=== PATIENT | male | born 1935 | race Caucasian/White ===

== ENCOUNTER 2016-07-14 16:25 | Emergency (ER) | payer OTHER ==
[~2016-07-14] VITALS: Ht 180.3 cm; Wt 145.4 kg
[~2016-07-14 16:25] MED LIST: ALEVE220 M2 PO; ALLOPURINOL300 MG PO; AMARYL4 MG PO; ASCORBIC ACID500 M3 PO; ASPIRIN EC325 MG PO; ATORVASTATIN CA40 MG PO; CARDIZEM CD,CA240 MG PO; CHOLESTYRAMINE210 GM PO; Cordarone, Pacerone PO; DOCUSATE SODIU100 MG PO; FISH OIL300 MG PO; FOLIC ACID1 MG PO; GLIMEPIRIDE4 MG PO; GLUCOPHAGE1000 MG PO; LIPITOR10 MG PO; LIPITOR20 MG PO; LISINOPRIL-HCT1 EACH PO; LISINOPRIL40 MG PO; LO-DOSE ASPIRIN81 M2 PO; LOPRESSOR25 MG PO; LOW DOSE ASPIRI81 M1 PO; METFORMIN HCL1000 MG PO; METHOCARBAMOL500 MG PO; METOPROLOL SUCC50 MG PO; METOPROLOL TART25 MG PO; MOTRIN600 MG PO; OXYCODONE HCL5 MG PO; PERCOCET 5/31 TABLET PO; QUESTRAN LIGHT210 GM PO; SELENIUM100 MICROG PO; THERAGRAN1 TABLET PO; TOPROL XL50 MG PO; ZYLOPRIM300 MG PO
[2016-07-14 17:21] LABS: EOSINOPHIL (%) 1.6 % (0-5); EOSINOPHIL COUNT 0.2 K/uL (0-0.3); HEMATOCRIT 35.2 % (38.0-50.0); IMMATURE GRANULOCYTE (%) 0.8 % (0.0-0.7); IMMATURE GRANULOCYTE COUNT 0.1 K/uL; INSTRUMENT ABS NEUTROPHIL CT 8.4 K/uL; LYMPHOCYTE COUNT 1.9 K/uL (1.0-2.8); MCH 30.9 PG (29.0-34.0); MCHC 33.8 G/DL (30.0-36.0); MCV 91.4 FL (86-99); MEAN PLAT.VOLUME 11.2 uM^3 (9.0-12.4); MONOCYTE (%) 8.9 % (3-12); NEUTROPHIL (%) 72.4 % (45-76); NEUTROPHIL COUNT 8.4 K/uL (1.8-6.4); PLATELET COUNT 218 K/uL (156-360); RBC DIS.WIDTH-CV 14.6 % (11.8-14.6); RBC DIS.WIDTH-SD 48.7 % (39-53); RED BLOOD COUNT 3.85 M/uL (4.00-5.50); WHITE BLOOD COUNT 11.6 K/uL (4.1-10.2)
[2016-07-14 17:27] LABS: CHLORIDE 104 mEq/L (99-109)
[2016-07-14 17:28] LABS: POTASSIUM 3.8 mEq/L (3.7-5.4); SODIUM 137 mEq/L (136-147)
[2016-07-14 17:30] LABS: GLUCOSE 184 mg/dL (70-99)
[2016-07-14 17:31] LABS: ANION GAP 13 MEQ/L (2-14)
[2016-07-14 17:32] LABS: TOTAL BILIRUBIN 0.7 mg/dL (0.0-1.0)
[2016-07-14 17:33] LABS: ALKALINE PHOSPHATASE 38 IU/L (3-129); GFR ESTIMATE (CALCULATED) > 59 mL/min/
[2016-07-14 17:35] LABS: UREA NITROGEN (BUN) 20 mg/dL (9-23)
[2016-07-14 17:42] LABS: TROP-I INTERPRETATION NEGATIVE; TROPONIN-I < 0.01 ng/mL (0.0-0.30)
[2016-07-14 19:21] LABS: BILIRUBIN NEGATIVE; BLOOD NEGATIVE; COLOR YELLOW ((YELLOW)); GLUCOSE (STRIP) NEGATIVE; KETONES 5; LEUKOCYTES NEGATIVE; NITRITE NEGATIVE; PROTEIN (STRIP) NEGATIVE; SPECIFIC GRAVITY 1.016 (1.000-1.030); UROBILINOGEN 0.2 MG/DL (0.2-1.0)
[2016-07-14 19:38] LABS: ADD MIUA? NO
[2016-07-14] MEDS ORDERED: KEFLEX500 MG PO (20:26)
[2016-07-14] MEDS ORDERED: MOTRIN600 MG PO (20:26)
[2016-07-14] MEDS ORDERED: BACLOFEN20 MG PO (20:26)
[2016-07-14 21:09] VITALS: BP 127/82
== END 2016-07-14 21:10 | disposition home or self-care (01) ==
LOC: EME → EDBD 16:25 → EME 21:10
PROVIDERS: Emergency Medicine
DX: S92.512A Displaced fracture of proximal phalanx of left lesser toe(s), initial encounter for closed fracture (principal); M54.5 Low back pain; W19.XXXA Unspecified fall, initial encounter; Y92.003 Bedroom of unspecified non-institutional (private) residence as the place of occurrence of the external cause; S91.106A Unspecified open wound of unspecified lesser toe(s) without damage to nail, initial encounter; E11.9 Type 2 diabetes mellitus without complications; I10 Essential (primary) hypertension; Z87.891 Personal history of nicotine dependence; Z79.84 Long term (current) use of oral hypoglycemic drugs; Z79.82 Long term (current) use of aspirin; I50.9 Heart failure, unspecified; M10.9 Gout, unspecified; Z95.2 Presence of prosthetic heart valve; Z96.651 Presence of right artificial knee joint
CPT/HCPCS: 70450; 72100; 72170; 73630; 80053; 81003; 84484; 85025; 93005; 99281; 99285; J1885

== ENCOUNTER 2016-07-30 02:41 | Inpatient (IN) | payer OTHER ==
[~2016-07-30] VITALS: Ht 177.8 cm; Wt 147.0 kg
[~2016-07-30 02:41] MED LIST changes: +BACLOFEN20 MG PO; +KEFLEX500 MG PO
[2016-07-30 03:30] LABS: ADD MIUA? YES; BILIRUBIN NEGATIVE; BLOOD NEGATIVE; COLOR AMBER ((YELLOW)); GLUCOSE (STRIP) NEGATIVE; KETONES NEGATIVE; LEUKOCYTES TRACE; NITRITE NEGATIVE; PROTEIN (STRIP) 30; SPECIFIC GRAVITY 1.018 (1.000-1.030); UROBILINOGEN 0.2 MG/DL (0.2-1.0)
[2016-07-30 03:42] LABS: INTER. NORMALIZED RATIO 1.1; PROTHROMBIN TIME 10.8 (9.2-11.2); PTT 25.8 (25-32)
[2016-07-30 03:43] LABS: EOSINOPHIL (%) 1.4 % (0-5); EOSINOPHIL COUNT 0.2 K/uL (0-0.3); HEMATOCRIT 35.1 % (38.0-50.0); IMMATURE GRANULOCYTE COUNT 0.1 K/uL; INSTRUMENT ABS NEUTROPHIL CT 10.8 K/uL; MCH 30.6 PG (29.0-34.0); MCV 92.6 FL (86-99); MEAN PLAT.VOLUME 11.5 uM^3 (9.0-12.4); MONOCYTE (%) 8.7 % (3-12); MONOCYTE COUNT 1.3 K/uL (0-0.8); NEUTROPHIL (%) 74.7 % (45-76); NEUTROPHIL COUNT 10.8 K/uL (1.8-6.4); PLATELET COUNT 181 K/uL (156-360); RBC DIS.WIDTH-CV 15.2 % (11.8-14.6); RED BLOOD COUNT 3.79 M/uL (4.00-5.50); WHITE BLOOD COUNT 14.4 K/uL (4.1-10.2)
[2016-07-30 03:45] LABS: BACTERIA NONE SEEN /HPF; EPITHELIAL CELLS RARE /HPF; GRANULAR CASTS 0-5 /LPF; HYALINE CASTS 20-30 /LPF; MUCUS TRACE /LPF; UCUL ADDED? NO; WHITE BLOOD CELLS NONE SEEN /HPF (0-5)
[2016-07-30 03:46] LABS: CHLORIDE 103 mEq/L (99-109); POTASSIUM 4.3 mEq/L (3.7-5.4); SODIUM 134 mEq/L (136-147)
[2016-07-30 03:49] LABS: GLUCOSE 142 mg/dL (70-99)
[2016-07-30 03:50] LABS: ANION GAP 17 MEQ/L (2-14); TOTAL BILIRUBIN 0.4 mg/dL (0.0-1.0)
[2016-07-30 03:52] LABS: ALKALINE PHOSPHATASE 44 IU/L (3-129); GFR ESTIMATE (CALCULATED) 28 mL/min/
[2016-07-30 03:53] LABS: UREA NITROGEN (BUN) 70 mg/dL (9-23)
[2016-07-30 03:54] LABS: DIRECT BILIRUBIN 0.2 mg/dL (0.0-0.3)
[2016-07-30 03:56] LABS: LIPASE 64 U/L (1.0-51.0)
[2016-07-30 04:54] LABS: HDL CHOLESTEROL 35 MG/DL (Desirable>=40); LDL CHOLESTEROL 90 mg/dL (Desirable<100); NON-HDL CHOLESTEROL 143 mg/dL (Desirable<160); SAMPLE HEMOLYSIS CHECK 0; SAMPLE ICTERIC CHECK 0; SAMPLE LIPEMIA CHECK 0; TOTAL CHOLESTEROL 178 mg/dL (Desirable<200); TRIGLYCERIDES 264 MG/DL (Normal: <150)
[2016-07-30] MEDS ORDERED: BACLOFEN10 MG PO (07:45)
[2016-07-30 17:50] VITALS: BP 135/73
[2016-07-30 18:05] LABS: EOSINOPHIL (%) 0.7 % (0-5); EOSINOPHIL COUNT 0.1 K/uL (0-0.3); HEMATOCRIT 36.7 % (38.0-50.0); IMMATURE GRANULOCYTE (%) 0.7 % (0.0-0.7); IMMATURE GRANULOCYTE COUNT 0.1 K/uL; INSTRUMENT ABS NEUTROPHIL CT 9.5 K/uL; LYMPHOCYTE COUNT 1.4 K/uL (1.0-2.8); MCH 30.5 PG (29.0-34.0); MCHC 32.7 G/DL (30.0-36.0); MCV 93.1 FL (86-99); MEAN PLAT.VOLUME 11.8 uM^3 (9.0-12.4); MONOCYTE (%) 9.4 % (3-12); MONOCYTE COUNT 1.2 K/uL (0-0.8); NEUTROPHIL (%) 77.5 % (45-76); NEUTROPHIL COUNT 9.5 K/uL (1.8-6.4); PLATELET COUNT 158 K/uL (156-360); RBC DIS.WIDTH-CV 14.9 % (11.8-14.6); RBC DIS.WIDTH-SD 50.3 % (39-53); RED BLOOD COUNT 3.94 M/uL (4.00-5.50); WHITE BLOOD COUNT 12.2 K/uL (4.1-10.2)
[2016-07-30 18:14] LABS: ANION GAP 11 MEQ/L (2-14); CHLORIDE 104 MEQ/L (99-109); POTASSIUM 4.3 MEQ/L (3.7-5.4); SAMPLE HEMOLYSIS CHECK 0; SAMPLE ICTERIC CHECK 0; SAMPLE LIPEMIA CHECK 0; SODIUM 133 MEQ/L (136-147)
[2016-07-30 18:20] LABS: GFR ESTIMATE (CALCULATED) 52 mL/min/; GLUCOSE 222 mg/dL (70-99); UREA NITROGEN (BUN) 49 mg/dL (9-23)
[2016-07-30 19:45] VITALS: BP 161/68
[2016-07-30 20:54] LABS: POINT-OF-CARE METER ID UU14188625
[2016-07-31] VITALS (7 sets, daily range): BP systolic 121–157; BP diastolic 60–91
[2016-07-31 07:43] LABS: EOSINOPHIL (%) 2.3 % (0-5); EOSINOPHIL COUNT 0.3 K/uL (0-0.3); HEMATOCRIT 34.1 % (38.0-50.0); IMMATURE GRANULOCYTE (%) 0.8 % (0.0-0.7); IMMATURE GRANULOCYTE COUNT 0.1 K/uL; INSTRUMENT ABS NEUTROPHIL CT 7.8 K/uL; LYMPHOCYTE COUNT 2.1 K/uL (1.0-2.8); MCH 30.4 PG (29.0-34.0); MCHC 32.8 G/DL (30.0-36.0); MCV 92.7 FL (86-99); MONOCYTE (%) 11.1 % (3-12); MONOCYTE COUNT 1.3 K/uL (0-0.8); NEUTROPHIL (%) 67.6 % (45-76); NEUTROPHIL COUNT 7.8 K/uL (1.8-6.4); PLATELET COUNT 166 K/uL (156-360); RBC DIS.WIDTH-CV 15.1 % (11.8-14.6); RBC DIS.WIDTH-SD 50.6 % (39-53); RED BLOOD COUNT 3.68 M/uL (4.00-5.50); WHITE BLOOD COUNT 11.6 K/uL (4.1-10.2)
[2016-07-31 08:01] LABS: POINT-OF-CARE METER ID UU14174225
[2016-07-31 08:04] LABS: ANION GAP 10 MEQ/L (2-14); CHLORIDE 108 MEQ/L (99-109); GFR ESTIMATE (CALCULATED) > 59 mL/min/; GLUCOSE 184 mg/dL (70-99); POTASSIUM 4.1 MEQ/L (3.7-5.4); SAMPLE HEMOLYSIS CHECK 0; SAMPLE ICTERIC CHECK 0; SAMPLE LIPEMIA CHECK 0; SODIUM 139 MEQ/L (136-147); UREA NITROGEN (BUN) 34 mg/dL (9-23); URIC ACID 7.4 mg/dL (3.1-9.2)
[2016-07-31 12:21] LABS: POINT-OF-CARE METER ID UU14188625
[2016-07-31 16:22] LABS: POINT-OF-CARE METER ID UU14188625
[2016-08-01 04:07] VITALS: BP 132/63
[2016-08-01 07:19] LABS: POINT-OF-CARE METER ID UU14174225
[2016-08-01 07:24] LABS: ANION GAP 9 MEQ/L (2-14); CHLORIDE 104 MEQ/L (99-109); GFR ESTIMATE (CALCULATED) > 59 mL/min/; GLUCOSE 161 mg/dL (70-99); POTASSIUM 3.8 MEQ/L (3.7-5.4); SAMPLE HEMOLYSIS CHECK 0; SAMPLE ICTERIC CHECK 0; SAMPLE LIPEMIA CHECK 0; SODIUM 134 MEQ/L (136-147); UREA NITROGEN (BUN) 20 mg/dL (9-23)
[2016-08-01 07:29] VITALS: BP 140/74
[2016-08-01 12:02] LABS: POINT-OF-CARE METER ID UU14188625
[2016-08-01 12:06] VITALS: BP 139/71
[2016-08-01 16:03] VITALS: BP 138/70
[2016-08-01 16:30] LABS: POINT-OF-CARE METER ID UU14174225
[2016-08-01 20:26] VITALS: BP 124/58
[2016-08-02 07:58] LABS: POINT-OF-CARE METER ID UU14174225
[2016-08-02 08:05] VITALS: BP 131/77
[2016-08-02 16:02] VITALS: BP 138/65
[2016-08-02 16:42] LABS: POINT-OF-CARE METER ID UU14174225
[2016-08-02 21:28] LABS: POINT-OF-CARE METER ID UU14174225
[2016-08-03 00:06] VITALS: BP 158/64
[2016-08-03 07:54] VITALS: BP 173/91
[2016-08-03 11:43] LABS: POINT-OF-CARE METER ID UU14188625
[2016-08-03 12:05] VITALS: BP 109/65
[2016-08-03 15:58] VITALS: BP 111/60
[2016-08-03 16:42] LABS: POINT-OF-CARE METER ID UU14188625
[2016-08-04] VITALS: BP 165/79
[2016-08-04 08:40] LABS: POINT-OF-CARE METER ID UU14174225
[2016-08-04 11:00] VITALS: BP 134/62
[2016-08-04 12:25] LABS: POINT-OF-CARE METER ID UU14188625
[2016-08-04 16:59] LABS: POINT-OF-CARE METER ID UU14174225
[2016-08-04] MEDS ORDERED: METOPROLOL SUC100 MG PO (18:00)
[2016-08-04] MEDS ORDERED: VALSARTAN160 MG PO (18:00)
[2016-08-04] MEDS ORDERED: GLIMEPIRIDE4 MG PO (18:01)
[2016-08-04] MEDS ORDERED: NOVOLOG PE100 UNITS/ SC (18:01)
[2016-08-04] MEDS ORDERED: LASIX20 MG PO (18:16)
[2016-08-04 20:26] VITALS: BP 143/68
[2016-08-05 01:04] VITALS: BP 142/70
[2016-08-05 05:36] LABS: EOSINOPHIL COUNT 0.4 K/uL (0-0.3); HEMATOCRIT 35.6 % (38.0-50.0); IMMATURE GRANULOCYTE (%) 0.9 % (0.0-0.7); IMMATURE GRANULOCYTE COUNT 0.1 K/uL; INSTRUMENT ABS NEUTROPHIL CT 7.9 K/uL; LYMPHOCYTE COUNT 2.9 K/uL (1.0-2.8); MCH 30.9 PG (29.0-34.0); MCHC 32.9 G/DL (30.0-36.0); MCV 93.9 FL (86-99); MONOCYTE COUNT 1.1 K/uL (0-0.8); NEUTROPHIL (%) 63.7 % (45-76); NEUTROPHIL COUNT 7.9 K/uL (1.8-6.4); PLATELET COUNT 184 K/uL (156-360); RBC DIS.WIDTH-CV 14.6 % (11.8-14.6); RBC DIS.WIDTH-SD 49.4 % (39-53); RED BLOOD COUNT 3.79 M/uL (4.00-5.50); WHITE BLOOD COUNT 12.3 K/uL (4.1-10.2)
[2016-08-05 06:41] LABS: ANION GAP 9 MEQ/L (2-14); CHLORIDE 101 MEQ/L (99-109); GFR ESTIMATE (CALCULATED) > 59 mL/min/; GLUCOSE 202 mg/dL (70-99); POTASSIUM 3.9 MEQ/L (3.7-5.4); SAMPLE HEMOLYSIS CHECK 0; SAMPLE ICTERIC CHECK 0; SAMPLE LIPEMIA CHECK 0; SODIUM 136 MEQ/L (136-147); UREA NITROGEN (BUN) 23 mg/dL (9-23)
[2016-08-05 08:00] VITALS: BP 139/69
[2016-08-05 12:00] VITALS: BP 116/61
[2016-08-05 12:41] LABS: POINT-OF-CARE METER ID UU14188625
[2016-08-05 15:15] VITALS: BP 133/72
[2016-08-05 16:17] LABS: POINT-OF-CARE METER ID UU14174225
== END 2016-08-05 18:30 | DRG 307 ==
LOC: EME 02:41 → 5SOUTH 07:16 → EDOF 07:16 → 5SOUTH 17:32
PROVIDERS: Emergency Medicine; Family Medicine; Family Medicine Sports Medicine
DX: I35.0 Nonrheumatic aortic (valve) stenosis (principal); N17.9 Acute kidney failure, unspecified; E11.8 Type 2 diabetes mellitus with unspecified complications; E87.1 Hypo-osmolality and hyponatremia; E66.01 Morbid (severe) obesity due to excess calories; Z87.891 Personal history of nicotine dependence; E78.5 Hyperlipidemia, unspecified; R26.2 Difficulty in walking, not elsewhere classified; E86.0 Dehydration; N18.9 Chronic kidney disease, unspecified; I12.9 Hypertensive chronic kidney disease with stage 1 through stage 4 chronic kidney disease, or unspecified chronic kidney disease; R53.1 Weakness; N30.90 Cystitis, unspecified without hematuria; M54.5 Low back pain; D64.9 Anemia, unspecified; R55 Syncope and collapse; E11.9 Type 2 diabetes mellitus without complications; Z79.82 Long term (current) use of aspirin; Z79.4 Long term (current) use of insulin; K21.9 Gastro-esophageal reflux disease without esophagitis; Z95.2 Presence of prosthetic heart valve; Z86.73 Personal history of transient ischemic attack (TIA), and cerebral infarction without residual deficits; Z68.42 Body mass index [BMI] 45.0-49.9, adult; I50.9 Heart failure, unspecified; I95.9 Hypotension, unspecified
CPT/HCPCS: 70450; 71020; 74176; 80048; 80048 91; 80061; 80076; 81003; 82607; 82746; 82948; 83690; 84550; 85025; 85025 91; 85610; 85730; 87040; 93005; 93880; 97530 GO; 99281; 99285; J0692; J1650; J1815; J7030; J7050

== ENCOUNTER 2017-04-30 21:47 | Emergency (ER) | payer OTHER ==
[~2017-04-30] VITALS: Ht 177.8 cm; Wt 133.1 kg
[~2017-04-30 21:47] MED LIST changes: +ACETAMINOPHEN650 M4 PR; +BACLOFEN10 MG PO; +FAMOTIDINE20 MG PO; +LASIX20 MG PO; +LOVENOX40 MG/0.4 SC; +METOPROLOL SUC100 MG PO; +MULTI-VITAMIN-1 EACH PO; +NOVOLOG PE100 UNITS/ SC; +PAIN & FEVER500 MG PO; +VALSARTAN160 MG PO; +VITAMIN D31000 UNIT PO; +Zeasorb Antifungal T TP
[2017-04-30 23:01] LABS: HEMATOCRIT 36.5 % (38.0-50.0); HEMOGLOBIN 12.4 G/DL (12.5-16.6); MCH 31.8 PG (29.0-34.0); MCV 93.6 FL (86-99); PLATELET COUNT 203 K/uL (156-360); RBC DIS.WIDTH-CV 13.9 % (11.8-14.6); RBC DIS.WIDTH-SD 47.3 % (39-53); WHITE BLOOD COUNT 11.7 K/uL (4.1-10.2)
[2017-04-30 23:06] LABS: CHLORIDE 106 mEq/L (99-109); POTASSIUM 4.1 mEq/L (3.7-5.4); SODIUM 137 mEq/L (136-147)
[2017-04-30 23:08] LABS: GLUCOSE 160 mg/dL (70-99)
[2017-04-30 23:12] LABS: CREATININE 1.4 mg/dL (0.6-1.3); GFR ESTIMATE (CALCULATED) 52 mL/min/ (58.99-99999)
[2017-04-30 23:13] LABS: UREA NITROGEN (BUN) 39 mg/dL (9-23)
[2017-05-01 02:10] LABS: APPEARANCE CLEAR ((CLEAR)); BILIRUBIN NEGATIVE; BLOOD LARGE; COLOR YELLOW ((YELLOW)); GLUCOSE (STRIP) NEGATIVE; KETONES NEGATIVE; LEUKOCYTES NEGATIVE; NITRITE NEGATIVE; PROTEIN (STRIP) 30; UROBILINOGEN 0.2 MG/DL (0.2-1.0)
[2017-05-01 02:14] LABS: BACTERIA NONE SEEN /HPF; EPITHELIAL CELLS RARE /HPF; HYALINE CASTS 0-5 /LPF; MUCUS TRACE /LPF; RED BLOOD CELLS TNTC /HPF (0-5); UCUL ADDED? YES; WHITE BLOOD CELLS 0-5 /HPF (0-5)
[2017-05-01] MEDS ORDERED: ZOFRAN ODT4 MG PO (02:35)
[2017-05-01] MEDS ORDERED: ULTRAM50 MG PO (02:35)
[2017-05-01 02:55] VITALS: BP 139/68
== END 2017-05-01 02:56 | disposition home or self-care (01) ==
LOC: EME 21:47
DX: N20.2 Calculus of kidney with calculus of ureter (principal); Z87.442 Personal history of urinary calculi; E11.9 Type 2 diabetes mellitus without complications; I11.0 Hypertensive heart disease with heart failure; I50.9 Heart failure, unspecified; Z96.651 Presence of right artificial knee joint; Z87.891 Personal history of nicotine dependence
CPT/HCPCS: 74176; 80048; 81003; 85027; 87086; 99281; 99284